=== PATIENT | female | born 1985 | race Caucasian/White ===

== ENCOUNTER 2017-07-12 12:22 | Emergency (ER) | payer OTHER ==
[~2017-07-12] VITALS: Ht 167.6 cm; Wt 104.3 kg
--- NOTE | ~2017-07-12 | EKG ---
[place] [address] [facility] [place] [address] ELECTROCARDIOGRAM REPORT Name: HERON VYAS Room #: DEP PAMELA Sky#: [id number] Admission: 07/12/17 Attend Phys: Discharge: 07/12/17 Date of : 81 Report #: [id number] THIS REPORT FOR: //name// [facility] ED Test Date: 2017-07-12 Test Time: 13:02:58 Pat Name: HERON VYAS Department: Room: Gender: F [employer]: [id number] : 1985 Requested By: Tasneem Marmolejo Order Number: [id number] MD: Hood Martini Measurements Intervals [place] Rate: 69 P: 36 ND: 149 QRS: 44 QRSD: 86 T: 36 QT: 404 QTc: 433 Interpretive Statements Sinus rhythm Borderline T wave abnormalities No previous ECG available for comparison Electronically Signed On 07-13-2017 8:21:01 CDT by Hood Martini [email or web address] <ELECTRONICALLY SIGNED> By: Hood Martini MD, [facility] 07/13/17 0821 1302 1302 Hood Martini MD, FACC /EPI
[2017-07-12 13:47] LABS: ABSOLUTE NEUTROPHILS 6.6 thou/uL (1.4-8.2); BASOPHILS 1.1 % (0.0-2.0); EOSINOPHILS 4.1 % (0.0-3.0); HEMOGLOBIN 15.2 gm/dL (12.0-15.0); LYMPHOCYTES 31.1 % (24.0-44.0); MCH 30.8 pg (26.0-34.0); MCHC 33.7 g/dL (28.0-37.0); MCV 91.4 fL (80.0-100.0); MONOCYTES 7.4 % (1.0-8.0); PLATELET COUNT 295 thou/uL (150-400); POLYS 56.3 % (36.0-66.0); RBC 4.93 mil/uL (4.20-5.00); RDW 15.5 % (10.5-14.5); WBC 11.7 thou/uL (4.0-11.0)
[2017-07-12 13:48] LABS: MANUAL DIFF NO
[2017-07-12 13:55] LABS: ANION GAP 7 mmol/L (7-16); BUN 6 mg/dL (7-18); CALCIUM 9.5 mg/dL (8.5-10.1); CHLORIDE 104 mmol/L (98-107); CO2 27 mmol/L (21-32); CREATININE 0.6 mg/dL (0.6-1.0); GLUCOSE 105 mg/dL (74-106); POTASSIUM 4.8 mmol/L (3.5-5.1); SODIUM 138 mmol/L (136-145)
[2017-07-12] MEDS ORDERED: PREDNISONE 20 M20 MG PO (13:57)
[2017-07-12 14:04] LABS: TROPONIN-I < 0.04 ng/mL (<0.04-0.07)
[2017-07-12 14:49] VITALS: BP 113/84
== END 2017-07-12 14:51 | disposition home or self-care (01) ==
LOC: ER 12:22
PROVIDERS: Emergency Medicine
DX: R07.89 Other chest pain (principal); G43.909 Migraine, unspecified, not intractable, without status migrainosus; F17.210 Nicotine dependence, cigarettes, uncomplicated; E11.9 Type 2 diabetes mellitus without complications; E03.9 Hypothyroidism, unspecified; Z90.13 Acquired absence of bilateral breasts and nipples; Z85.3 Personal history of malignant neoplasm of breast